=== PATIENT | male | born 1985 | race Caucasian/White ===

== ENCOUNTER 2023-09-11 06:07 | Day surgery (SDC) | payer OTHER ==
[2023-09-03 16:33] VITALS: BMI 27.7
[2023-09-11] MEDS ORDERED: MIDAZOLAM HCL 2 MG/2 ML SINGLE DOSE VIAL ONE (07:12)
[2023-09-11] MEDS ORDERED: PROPOFOL 20 ML ONE ×3 (07:12→08:15)
[2023-09-11] MEDS ORDERED: BUPIVACAINE HCL/PF 0.25% (2.5MG/ML) 10 ML VIAL ONE (07:19)
[2023-09-11] MEDS ORDERED: BUPIVACAINE HCL/PF 0.5% (5MG/ML) 10 ML VIAL ONE (07:19)
[2023-09-11] MEDS ORDERED: LIDOCAINE HCL 1%, 10 MG/ML (20ML VIAL) ONE (07:20)
[2023-09-11] MEDS ORDERED: ONDANSETRON 4 MG/2 ML VIAL IVPUSH PRN (07:28)
[2023-09-11] MEDS ORDERED: oxyCODONE HCL 5 MG TABLET PO PRN (07:28)
[2023-09-11] MEDS ORDERED: ACETAMINOPHEN 325 MG TABLET (FP) PO PRN (07:28)
[2023-09-11] MEDS ORDERED: LACTATED RINGERS SOLUTION 1,000 ML IV SCH (07:30)
[2023-09-11] MEDS ORDERED: ceFAZolin SODIUM 1 GM VIAL ONE ×2 (07:49)
[2023-09-11 09:47] VITALS: TEMP 97.9
[2023-09-11 09:55] VITALS: BP 110/72; PULSE 50; RESP 19
== END 2023-09-11 09:45 | disposition home or self-care (01) ==
LOC: FASU 06:07
PROVIDERS: ATTEND Orthopaedic Surgery Sports Medicine
PROC: 0LN63ZZ Release Left Lower Arm and Wrist Tendon, Percutaneous Approach (ICD-10-PCS; principal; 2023-09-11 08:03)
DX: M77.8 Other enthesopathies, not elsewhere classified (principal)
CPT/HCPCS: 94760